=== PATIENT | male | born 1995 | race Caucasian/White ===

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

== ENCOUNTER 2019-03-08 08:47 | Emergency (ER) | payer SELFPAY ==
[~2019-03-08] VITALS: Ht 180.3 cm; Wt 100.0 kg
[2019-03-08] MEDS ORDERED: NALOXONE 1 MG/ML, 2ML ONE (09:16)
[2019-03-08] MEDS ORDERED: ONDANSETRON 2MG/ML, 2ML ONE (09:25)
--- NOTE | 2019-03-08 09:27 | NUR ---
LATE ENTRY TASK RN: PT TO ROOM VIA WHEELCHAIR FROM TRIAGE. PT MOTHER STATES THAT HE SMOKED 2 "PER 30'S" PT ON MONITOR DR LITTLEJOHN AT BEDSIDE, PT WAS AWAKE AND ANSWERING QUESTIONS. ER MD ORDERED PHENERGAN IM FOR VOMITING. THIS RN STEPPED OUT OF THE ROOM TO GET A BLANKET AND PILLOW. UPON RETURNING PT WAS SOMNULENT WITH MINIMAL SHALLOW RESPIRATIONS SP02 77%. I APPLIED STERNAL RUB TO ARROUSE PT AND INSTRUCTED TO TAKE DEEP BREATH, [address] PT IMMEDIATELY RTD TO SLEEPING AND MINIMAL CHEST WALL MOVEMENT NOTED. AGAIN STERNAL RUB APPLIED WITH RESPONSE. DR. LITTLEJOHN INFORMED. ORDER REC'D FOR NARCAN. PIV EST BY EMT AND THIS RN ADMIN NARCAN WITH EFFECT. DR. LITTLEJOHN AT BEDSIDE. PHENERGAN ORDER D/C AND ORDER FOR ZOFRAN REC'D. PT WITH ACTIVE VOMITING. ZOFRAN GIVEN WITH EFFECT. PT VSS. PT STATES THAT HE SMOKED ONLY THE PERCOCET AT 0100 THIS MORNING AND DENIES ANY OTHER DRUGS OR ALCOHOL. PTS MOTHER REMAINS AT BEDSIDE. RN WILL CONTINUE TO MONITOR PT CLOSELY.
[2019-03-08] MEDS ORDERED: PROMETHAZINE 25 MG/ML, 1ML IM ONE (09:30)
[2019-03-08] MEDS ORDERED: NALOXONE 1 MG/ML, 2ML IVPush ONE (09:30)
[2019-03-08 09:44] LABS: BASOPHILS # (AUTO) 0.01 x10^3/uL (0-0.1); BASOPHILS % (AUTO) 0 % (0-1); EOSINOPHILS # (AUTO) 0.01 x10^3/uL (0-0.4); EOSINOPHILS % (AUTO) 0 % (1-7); LYMPHOCYTES # (AUTO) 1.01 x10^3/uL (1-3.4); LYMPHOCYTES % (AUTO) 6 % (22-44); MD NO; MEAN CORPUSCULAR HEMOGLOBIN 28.8 pg (27.5-34.5); MEAN CORPUSCULAR HGB CONC 33.2 g/dL (33.2-36.2); MEAN CORPUSCULAR VOLUME 86.7 fL (81-97); MEAN PLATELET VOLUME 7.7 fL (7.4-10.4); MONOCYTES # (AUTO) 0.74 x10^3/uL (0.2-0.8); MONOCYTES % (AUTO) 4 % (2-9); NEUTROPHILS % (AUTO) 90 % (42-75); PLATELET COUNT 295 x10^3/uL (130-400); RED BLOOD COUNT 5.38 x10^6/uL (4.38-5.82); RED CELL DISTRIBUTION WIDTH 14.3 % (9.4-14.8)
[2019-03-08 09:47] LABS: ALANINE AMINOTRANSFERASE 50 U/L (12-78); ALBUMIN 4.6 g/dL (3.4-5.0); ANION GAP 4 mmol/L (5-15); CALCIUM 9.1 mg/dL (8.5-10.1); CHLORIDE 101 mmol/L (98-107); CREATININE 1.19 mg/dL (0.7-1.3); SALICYLATE LEVEL < 1.7 mg/dL (2.8-20.0)
[2019-03-08 09:49] LABS: ALKALINE PHOSPHATASE 96 U/L (45-117); BILIRUBIN,TOTAL 0.4 mg/dL (0.2-1.0); TOTAL PROTEIN 7.7 g/dL (6.4-8.2)
--- NOTE | 2019-03-08 10:00 | NUR ---
ASSUMED CARE OF PT AT THIS TIME. PT AWARE OF NEED FOR URINA SAMPLE. PT EASLIY ABLE TO BE WOKEN UP. MOTHER AT BEDSIDE.
--- NOTE | 2019-03-08 10:17 | NUR ---
EBER SENT TO THE LAB. ICE CHIPS GICUCA TO PT, OK PER DR. LITTLEJOHN.
[2019-03-08 10:27] LABS: AMPHETAMINE SCREEN, URINE Negative (Negative); BARBITURATE SCREEN, URINE Negative (Negative); BENZODIAZEPINE SCREEN, URINE Negative (Negative); CANNABINOID SCREEN, URINE Positive (Negative); COCAINE SCREEN, URINE Negative (Negative); METHADONE SCREEN, URINE Negative (Negative); OPIATE SCREEN, URINE Negative (Negative)
--- NOTE | 2019-03-08 10:50 | NUR ---
CHART UP FOR MD RECHECK. PT AWARE AND MOTHER AWARE. PT HAS NASAL CANNULA OUT OF HIS NOSE AND WAS SATING AT 99%. OXYGEN TURNED OFF.
[2019-03-08 10:56] VITALS: BP_DIAS 62
[2019-03-08 12:01] VITALS: BP_SYST 118
== END 2019-03-08 12:09 | disposition home or self-care (01) ==
LOC: ED 11:02
DX: R11.2 Nausea with vomiting, unspecified (principal); T40.601A Poisoning by unspecified narcotics, accidental (unintentional), initial encounter; Y92.9 Unspecified place or not applicable
CPT/HCPCS: 36415; 80053; 80307; 85025; 96374; 99283; J2310

== ENCOUNTER 2019-05-12 11:03 | Emergency (ER) | payer SELFPAY ==
[~2019-05-12] VITALS: Ht 177.8 cm; Wt 106.5 kg
[2019-05-12 11:14] VITALS: BP 115/66
--- NOTE | 2019-05-12 11:35 | NUR ---
xr is at the bedside for images.
--- NOTE | 2019-05-12 12:14 | NUR ---
elizabeth estrada spoke with dr delaney
[2019-05-12] MEDS ORDERED: HYDROcodone/APAP 5/325 TABLET PO ONE (12:30)
[2019-05-12] MEDS ORDERED: HYDROcodone/APAP 5/325 TABLET ONE (12:38)
== END 2019-05-12 13:09 | disposition home or self-care (01) ==
LOC: ED 13:02
DX: S62.324A Displaced fracture of shaft of fourth metacarpal bone, right hand, initial encounter for closed fracture (principal); F17.210 Nicotine dependence, cigarettes, uncomplicated; W18.39XA Other fall on same level, initial encounter; Y93.89 Activity, other specified; Y92.830 Public park as the place of occurrence of the external cause; Y99.8 Other external cause status
CPT/HCPCS: 29125; 99283